=== PATIENT | female | born 1945 | race Caucasian/White ===

== ENCOUNTER 2019-04-30 08:11 | Day surgery (SDC) | payer MEDICARE, OTHER ==
[2019-04-30] MEDS ORDERED: Lidocaine 2% 5 ML SDV INJECT ONE (08:12)
[2019-04-30] MEDS ORDERED: Propofol 200 MG/20 ML SDV IV ONE (08:12)
[2019-04-30] MEDS ORDERED: Lactated Ringers 1,000 ML IV SCH (08:15)
[2019-04-30] MEDS ORDERED: Sodium Chloride 0.9% 10 ML Syringe FLUSH PRN (08:15)
--- NOTE | 2019-04-30 10:38 | PCM.OPNOTE ---
- General Post-Op/Procedure Note Date of Surgery/Procedure: 04/30/19 Operative Procedure(s): egd with biopsy Findings: gastritis schatski's ring Pre Op Diagnosis: dysphagia Post-Op Diagnosis: gastritis. Schatski's ring Anesthesia Technique: MARLYN Primary Surgeon: Jarett Dotson Anesthesia Provider: Jasmin Ryo Pathology: none Complications: None Condition: Good Free Text/Narrative:: see dictation
[2019-04-30 11:23] VITALS: BP 178/69; PULSE 81
--- NOTE | 2019-04-30 15:16 | OR ---
DATE OF OPERATION: 04/30/2019 SURGEON: Jarett Dotson MD PROCEDURE PERFORMED: Esophagogastroduodenoscopy with cold forceps biopsy. PREOPERATIVE DIAGNOSIS: History of dysphagia. POSTOPERATIVE DIAGNOSIS: Schatzki's ring and gastritis. INDICATIONS FOR PROCEDURE: This is a 74-year-old white female who presents with the above-mentioned complaints. She was offered and accepted an esophagogastroduodenoscopy. DESCRIPTION OF OPERATION: After an excellent IV sedation was administered, the bite block was inserted. The flexible endoscope was passed down the patient's esophagus into the stomach. Stomach was insufflated, scope passed to the pylorus, second portion of the duodenum, and slowly withdrawn. Following findings were noted. Duodenum was unremarkable. Stomach demonstrated some mild gastritis. Biopsies were taken. GE junction measured approximately 40 cm and she has the appearance of a Schatzki's ring. Biopsies were taken circumferentially. Remainder of the esophageal exam was unremarkable. Stomach was deflated, scope was removed. The patient tolerated the procedure well and was taken to recovery. /[id number] /LILLY
== END 2019-04-30 11:27 | disposition home or self-care (01) ==
LOC: FB.SDS 08:11
PROVIDERS: ATTEND Surgery
DX: K22.2 Esophageal obstruction (principal); K29.50 Unspecified chronic gastritis without bleeding; K20.9 Esophagitis, unspecified; K31.89 Other diseases of stomach and duodenum; E11.9 Type 2 diabetes mellitus without complications; E78.2 Mixed hyperlipidemia; Z87.891 Personal history of nicotine dependence; Z79.84 Long term (current) use of oral hypoglycemic drugs; Z79.899 Other long term (current) drug therapy
CPT/HCPCS: 00731; 43239; 82962; J2001; J2704; J7120; 88305; 88313; 88342

== ENCOUNTER 2020-01-08 06:51 | Day surgery (SDC) | payer MEDICARE, OTHER ==
[~2020-01-08 06:51] MED LIST: Lactated Ringers 1,000 ML IV SCH; Sodium Chloride 0.9% 10 ML Syringe FLUSH PRN
[2020-01-08] MEDS ORDERED: Propofol 200 MG/20 ML SDV IV ONE (06:52)
[2020-01-08] MEDS ORDERED: Lidocaine 1% PF 2 ML SDV INJECT ONE (06:52)
--- NOTE | 2020-01-08 09:33 | PCM.OPNOTE ---
- General Post-Op/Procedure Note Date of Surgery/Procedure: 01/08/20 Operative Procedure(s): c scope Findings: scattered diverticuli Pre Op Diagnosis: hx of polyps Post-Op Diagnosis: diverticulosis Anesthesia Technique: MARLYN Primary Surgeon: Jarett Dotson Anesthesia Provider: Cedric Xavier Pathology: none Complications: None Condition: Good Free Text/Narrative:: see dictation
[2020-01-08 10:07] VITALS: BP 142/71; PULSE 69
--- NOTE | 2020-01-08 11:52 | PREOP ---
ADMISSION DATE: 01/08/2020 CHIEF COMPLAINT: Personal history of colon polyps. HISTORY OF PRESENT ILLNESS: This is a patient who presents for her 5-year followup. She has noted a little bit of streaking with blood recently with her bowel prep. Otherwise completely asymptomatic. MEDICATIONS: Include; 1. Baby aspirin 81 mg daily. 2. Metformin 500 mg b.i.d. 3. Lipitor 40 mg daily. ALLERGIES: She has no known drug allergies. PAST MEDICAL HISTORY: Significant for; 1. Type 2 diabetes. 2. Hyperlipidemia. 3. History of SVT. PAST SURGICAL HISTORY: Significant for hysterectomy. REVIEW OF SYSTEMS: The patient denies any constitutional, HEENT, respiratory, cardiovascular, or GI issues. PHYSICAL EXAMINATION: GENERAL: This is a well-developed, well-nourished female, appearing in no acute distress. HEENT: Grossly within normal limits. LUNGS: Clear to auscultation. HEART: Regular rate and rhythm. ABDOMEN: Soft and nontender. ASSESSMENT: Personal history of colon polyps. PLAN: C-scope. Procedure and risks were explained to the patient to including bleeding, perforation, and infection. The patient expresses understanding and asked us to proceed. Her COVID-19 PCR was negative. /[id number] /INDIRAL
--- NOTE | 2020-01-08 14:13 | OR ---
DATE OF OPERATION: 01/08/2020 SURGEON: Jarett Dotson MD PROCEDURE PERFORMED: Colonoscopy. PREOPERATIVE DIAGNOSIS: Personal history of colon polyps. POSTOPERATIVE DIAGNOSIS: Diverticulosis. INDICATIONS FOR PROCEDURE: This is a 74-year-old white female, presents for followup colonoscopy, last one was 5 years ago, she had some adenomatous polyps removed. DESCRIPTION OF OPERATION: After an excellent IV sedation was administered, digital rectal exam was performed. No marked abnormality was noted. The flexible colonoscope was inserted and advanced without difficulty to the cecum. The prep was excellent. The following findings were noted: Ascending colon, unremarkable. Transverse colon, unremarkable. Descending colon, occasional diverticula. Sigmoid, occasional diverticula. Rectum and anus, unremarkable except for little bit of irritation around the anus. RECOMMENDATIONS: Repeat colonoscopy on a p.r.n. basis, given the patient's age. /[id number] /INDIRAL
== END 2020-01-08 10:18 | disposition home or self-care (01) ==
LOC: FB.SDS 06:51
PROVIDERS: ATTEND Surgery
DX: Z12.11 Encounter for screening for malignant neoplasm of colon (principal); K57.30 Diverticulosis of large intestine without perforation or abscess without bleeding; E11.9 Type 2 diabetes mellitus without complications; E78.5 Hyperlipidemia, unspecified; Z11.59 Encounter for screening for other viral diseases; Z79.84 Long term (current) use of oral hypoglycemic drugs; Z79.899 Other long term (current) drug therapy; Z86.010 Personal history of colon polyps; Z79.82 Long term (current) use of aspirin
CPT/HCPCS: 00811-QZ; J2001; J2704; J7120; U0002

== ENCOUNTER 2021-10-27 07:18 | Day surgery (SDC) | payer MEDICARE, OTHER ==
[2021-10-27] MEDS ORDERED: Lidocaine 2% Viscous Solution 15 ML UD PO ONE (07:19)
[2021-10-27] MEDS ORDERED: Propofol 200 MG/20 ML SDV IV ONE (07:19)
[2021-10-27 11:21] VITALS: BP 187/81; PULSE 68
== END 2021-10-27 10:37 | disposition home or self-care (01) ==
LOC: FB.SDS 07:18
PROVIDERS: ATTEND Surgery
DX: K21.00 Gastro-esophageal reflux disease with esophagitis, without bleeding (principal); K22.2 Esophageal obstruction; K44.9 Diaphragmatic hernia without obstruction or gangrene; E11.9 Type 2 diabetes mellitus without complications; E78.5 Hyperlipidemia, unspecified; Z98.890 Other specified postprocedural states; Z79.899 Other long term (current) drug therapy; Z87.891 Personal history of nicotine dependence
CPT/HCPCS: 00731-QZ; 82947; 88305; A9270-GY; J2704; J7120

== ENCOUNTER 2024-12-14 13:55 | Emergency (ER) | payer MEDICARE, OTHER ==
[2024-12-14 14:15] VITALS: PULSE 96
[2024-12-14] MEDS: amLODIPine 5 MG Tab PO ONE (14:21)
[2024-12-14 14:34] LABS: BASOPHILS PERCENT AUTO 0.5 % (0.2-1.5); EOSINOPHILS ABSOLUTE AUTO 0.1 x10-3/uL (0.0-0.8); EOSINOPHILS PERCENT AUTO 1.2 % (0.6-8.1); HEMATOCRIT 41.9 % (34.2-48.2); HEMOGLOBIN 14.1 g/dL (11.4-15.5); LYMPHOCYTES ABSOLUTE AUTO 2.7 x10-3/uL (1.0-4.4); LYMPHOCYTES PERCENT AUTO 34.2 % (18.4-52.1); MEAN CORPUSCULAR HEMOGLOBIN 30.4 pg (23.9-33.9); MEAN CORPUSCULAR HGB CONC 33.8 g/dL (31.9-34.8); MEAN CORPUSCULAR VOLUME 90.1 fL (76.7-100.5); MEAN PLATELET VOLUME 7.4 fL (7.1-12.4); MONOCYTES ABSOLUTE AUTO 0.4 x10-3/uL (0.3-1.0); MONOCYTES PERCENT AUTO 5.4 % (4.4-15.7); NEUTROPHILS ABSOLUTE AUTO 4.5 x10-3/uL (1.5-6.3); NEUTROPHILS PERCENT AUTO 58.7 % (30.8-76.2); PLATELET COUNT,PLT 347 x10(3)uL (151-488); RED BLOOD CELL COUNT 4.65 x10(6)uL (3.60-5.20); WHITE BLOOD CELL COUNT,WBC 7.8 x10-3/uL (3.0-10.3)
[2024-12-14 14:35] LABS: BLOOD UREA NITROGEN,BUN 13 mg/dL (7-18); BUN/CREATININE RATIO 16.3 (9-20); CALCIUM 8.7 mg/dL (8.6-10.2); CARBON DIOXIDE,CO2 27 mmol/L (21-32); CHLORIDE,CL 103 mmol/L (100-110); CREATININE 0.8 mg/dL (0.55-1.02); ESTIMATED GFR 74 mL/min (>60); GLUCOSE RANDOM 178 mg/dL (80-116); POTASSIUM,K 3.8 mmol/L (3.5-5.3); SODIUM,NA 140 mmol/L (135-145)
[2024-12-14 14:41] LABS: A/G RATIO 1.1; ALANINE AMINOTRANSFERASE,ALT 17 U/L (12-36); ALBUMIN 3.6 g/dL (3.2-4.6); ALKALINE PHOSPHATASE 74 IU/L (56-112); ASPARTATE AMNIOTRANSFERASE,AST 14 IU/L (5-25); BILIRUBIN TOTAL 0.6 mg/dL (0.1-1.3)
[2024-12-14 14:49] LABS: TROPONIN I 5.7 pg/mL (4.0-60.3)
[2024-12-14 16:00] VITALS: BP 163/80
== END 2024-12-14 16:00 | disposition home or self-care (01) ==
LOC: FB.ED 13:55
DX: R04.0 Epistaxis (principal); I16.9 Hypertensive crisis, unspecified; I10 Essential (primary) hypertension; E11.9 Type 2 diabetes mellitus without complications; E78.00 Pure hypercholesterolemia, unspecified; Z79.899 Other long term (current) drug therapy; Z79.84 Long term (current) use of oral hypoglycemic drugs
CPT/HCPCS: 36415; 80053; 83880; 84484; 85025; 99283; A9270

== ENCOUNTER 2025-05-06 09:31 | Emergency (ER) | payer MEDICARE, OTHER ==
[2025-05-06 10:55] LABS: BASOPHILS ABSOLUTE AUTO 0.0 x10-3/uL (0.0-0.1); BASOPHILS PERCENT AUTO 0.3 % (0.2-1.5); EOSINOPHILS ABSOLUTE AUTO 0.1 x10-3/uL (0.0-0.8); EOSINOPHILS PERCENT AUTO 0.9 % (0.6-8.1); LYMPHOCYTES ABSOLUTE AUTO 1.4 x10-3/uL (1.0-4.4); LYMPHOCYTES PERCENT AUTO 22.5 % (18.4-52.1); MEAN PLATELET VOLUME 7.6 fL (7.1-12.4); MONOCYTES ABSOLUTE AUTO 0.5 x10-3/uL (0.3-1.0); MONOCYTES PERCENT AUTO 7.7 % (4.4-15.7); NEUTROPHILS ABSOLUTE AUTO 4.3 x10-3/uL (1.5-6.3); NEUTROPHILS PERCENT AUTO 68.6 % (30.8-76.2); PLATELET COUNT,PLT 293 x10(3)uL (151-488); RED BLOOD CELL COUNT 4.51 x10(6)uL (3.60-5.20); RED CELL DISTRIBUTION WIDTH 13.1 % (12.3-16.5); WHITE BLOOD CELL COUNT,WBC 6.2 x10-3/uL (3.0-10.3)
[2025-05-06 10:57] LABS: BLOOD UREA NITROGEN,BUN 15 mg/dL (7-18); CARBON DIOXIDE,CO2 26 mmol/L (21-32); CHLORIDE,CL 105 mmol/L (100-110); CREATININE 0.8 mg/dL (0.55-1.02); ESTIMATED GFR 74 mL/min (>60); GLUCOSE RANDOM 141 mg/dL (80-116); POTASSIUM,K 4.0 mmol/L (3.5-5.3); SODIUM,NA 137 mmol/L (135-145)
[2025-05-06 11:02] LABS: PTT,PARTIAL THROMBOPLSTIN TIME 23.8 SECONDS (24.4-33.2)
[2025-05-06 11:03] LABS: A/G RATIO 1.0; ALANINE AMINOTRANSFERASE,ALT 13 U/L (12-36); ASPARTATE AMNIOTRANSFERASE,AST 11 IU/L (5-25); BILIRUBIN TOTAL 0.6 mg/dL (0.1-1.3); PROTEIN TOTAL,TP 6.3 g/dL (6.0-8.0)
[2025-05-06 11:04] LABS: INR 0.97 (1.00-1.24)
[2025-05-06 12:22] VITALS: BP 137/73; PULSE 71
== END 2025-05-06 11:50 | disposition home or self-care (01) ==
LOC: FB.ED 09:31
DX: R04.0 Epistaxis (principal); I10 Essential (primary) hypertension; E11.9 Type 2 diabetes mellitus without complications; E78.00 Pure hypercholesterolemia, unspecified; Z79.84 Long term (current) use of oral hypoglycemic drugs; Z87.891 Personal history of nicotine dependence
CPT/HCPCS: 36415; 80053; 83735; 85025; 85610; 85730; 99283

== ENCOUNTER 2025-06-03 07:44 | Day surgery (SDC) | payer MEDICARE, OTHER ==
[~2025-06-03 07:44] MED LIST changes: -Lactated Ringers 1,000 ML IV SCH
[2025-06-03] MEDS ORDERED: Propofol 200 MG/20 ML SDV IV ONE (07:45)
[2025-06-03] MEDS: Lactated Ringers 1,000 ML IV SCH (08:46)
[2025-06-03 09:20] VITALS: BP 170/73; PULSE 76
== END 2025-06-03 10:35 | disposition home or self-care (01) ==
LOC: FB.SDS 07:44
PROVIDERS: ATTEND Surgery
DX: K29.50 Unspecified chronic gastritis without bleeding (principal); K29.80 Duodenitis without bleeding; K31.89 Other diseases of stomach and duodenum; K20.90 Esophagitis, unspecified without bleeding; K22.4 Dyskinesia of esophagus; K22.2 Esophageal obstruction; K44.9 Diaphragmatic hernia without obstruction or gangrene; E11.9 Type 2 diabetes mellitus without complications; E78.5 Hyperlipidemia, unspecified; I10 Essential (primary) hypertension; Z79.84 Long term (current) use of oral hypoglycemic drugs; Z68.23 Body mass index [BMI] 23.0-23.9, adult; Z87.891 Personal history of nicotine dependence; Z79.899 Other long term (current) drug therapy
CPT/HCPCS: 00731; 43239; 82947; 88305; 88313; 88342; 99100; A9270; J2003; J2704; J7120